=== PATIENT | male | born 1975 ===

== ENCOUNTER 2017-01-20 07:07 | Emergency (ER) | payer OTHER ==
[2017-01-20 07:15] VITALS: TEMP 98.2
[2017-01-20 07:19] VITALS: BMI 28.1
--- NOTE | 2017-01-20 07:24 | ED PDOC ---
Arrival/HPI - General Chief Complaint: Chest Pain Time Seen by Provider: 01/20/17 07:08 Historian: Patient, Family - History of Present Illness Narrative History of Present Illness (Text): 01/20/17 07:32 41 year old male who denies past medical history presents to the emergency department with pleuritic chest pain yesterday which has resolved. Currently patient is complaining of neck pain that radiates down the left arm, reproducible with movement and palpation. History translated by daughter. Time/Duration: 24 hours Symptom Onset: Gradual Symptom Course: Unchanged Modifying Factors (Text): Worse with movement and palpation Associated Symptoms (Text): None Past Medical History - Provider Review Nursing Documentation Reviewed: Yes - Musculoskeletal/Rheumatological Hx Back Pain: Yes - Psychiatric Hx Substance Use: No - Surgical History Other/Comment: Hernia Sx as a child. Family/Social History - Physician Review Nursing Documentation Reviewed: Yes Family/Social History: Unknown Family HX Smoking Status: Never Smoked Hx Alcohol Use: No Hx Substance Use: No Allergies/Home Meds Allergies/Adverse Reactions: Allergies No Known Allergies Allergy (Verified 01/20/17 07:19) Home Medications: Home Meds Medication Instructions Recorded Confirmed No Known Home Med 01/20/17 01/20/17 Review of Systems - Physician Review All systems were reviewed & negative as marked: Yes Physical Exam - Physical Exam Narrative Physical Exam (Text): - Review of Systems Constitutional: Normal. absent: Fatigue, Weight Change, Fevers Eyes: Normal ENT: Normal Respiratory: Normal absent: SOB, Cough, Sputum Cardiovascular: Chest pain (resolved) absent: Palpitations, Syncope Gastrointestinal: Normal absent: Abdominal pain, Diarrhea, Nausea, Vomiting Genitourinary: Normal. absent: Dysuria, Frequency, Hematuria Musculoskeletal: Neck Pain absent: Arthralgias, Back Pain Skin: Normal Neurological: Normal absent: Focal Weakness Endocrine: Normal Hemo/Lymphatic: Normal Psychiatric: Normal - Physical exam Patient appears age appropriate, speaking full sentences without difficulty - Systems Exam Head: Present: Atraumatic, Normocephalic Pupils: Present: PERRL Extraocular Muscles: Present: EOMI Conjunctiva: Present: Normal Mouth: Present: Moist Mucous Membranes Neck: Present: Normal Range of Motion. Pain reproducible with movement and palpation, paraspinal tenderness. No: MIDLINE TENDERNESS Respiratory/Chest: Present: Clear to Auscultation, Good Air Exchange. No: Respiratory Distress, Accessory Muscle Use, Tachypneic Cardiovascular: Present: Regular Rate and Rhythm, Normal S1, S2, Peripheral Pulses Present. No: Murmurs Abdomen: Present: Normal Bowel Sounds, No: Tenderness, Peritoneal Signs, Rebound, Guarding, Distention Back: Present: Normal Inspection. No: Midline Tenderness, Paraspinal Tenderness Upper Extremity: Present: Normal Inspection. No: Cyanosis, Edema Lower Extremity: Present: Normal Inspection. No: Edema Neurological: Present: GCS=15, Speech Normal, cranial nerves II through XII fully intact with no cerebellar abnormality, neuro-sensory fully intact. No focal neurological deficits. Skin: Present: Warm, Dry, Normal Color. No: Rashes Lymphatic: Present: OX3, NI, NC Psychiatric: Present: Alert, Oriented x 3, Normal Insight, Normal Concentration Vital Signs Reviewed: Yes Vital Signs Temp Pulse Resp BP Pulse Ox 01/20/17 07:14 98.2 F 86 18 149/80 100 Temperature: Afebrile Blood Pressure: Normal Pulse: Regular Respiratory Rate: Normal Appearance: Positive for: Well-Appearing, Non-Toxic, Comfortable Pain Distress: Mild Mental Status: Positive for: Alert and Oriented X 3 Medical Decision Making ED Course and Treatment: Impression: 41 year old male, denies pmhx, presents with pleuritic chest pain yesterday which resolved and now neck pain radiating down the left arm. On physical exam, patient Differential Diagnosis include but are not limited to: Plan: -- EKG, Chest X-ray -- Labs -- Reassess and disposition Progress Notes: EKG shows NSR at [address]-segment elevations, normal intervals. with no prior for comparison. Interpreted by me. 01/20/17 09:00 Chest xray interpreted by ED physician shows no pneumothorax, no cardiomegaly, no infiltrates pt with no cardiac risk factors, reproducible chest pain, currently denies cp and in no distress PERC negative for PE Had a long and extensive d/w patient about f/u with a candy feeder for further workup and testing as well as a primary physician. Explained to patient that although his ER w/u did not show any acute abnormalities, patient still needs further testing which may include an echo, stress test, cardiac cath, or others. Pt states he understands to return to the ER right away for new or worsening symptoms or for inability to f/u with PMD or specialist as instructed. Patient states that he fully agrees with and understands discharge instructions. States that he agrees with the plan and disposition. Verbalized and repeated discharge instructions and plan. I have given the patient opportunity to ask any additional questions. Patient encounter translated by his daughter. Patient has been offered an official senior tax analyst, however he refused. - Lab Interpretations Lab Results: 01/20/17 07:45 01/20/17 07:45 Lab Results 01/20/17 07:45: WBC 8.9, RBC 5.03, Hgb 16.1, Hct 44.6, MCV 88.7, MCH 32.0, MCHC 36.1, RDW 13.3, Plt Count 393, MPV 9.4, Gran % 40.8 L, Lymph % (Auto) 45.2 H, Stark % (Auto) 8.5 H, Eos % (Auto) 5.1 H, Baso % (Auto) 0.4, Gran # 3.63, Lymph # 4.0 H, Stark # 0.8 H, Eos # 0.5, Baso # 0.04, PT 10.5, INR 0.97, APTT 25.6, Sodium 140, Potassium 4.3, Chloride 101, Carbon Dioxide 29, Anion Gap 14, BUN 12 , Creatinine 1.0, Est GFR ( Amer) > 60, Est GFR (Non-Af Amer) > 60, Random Glucose 96, Calcium 9.8, Total Bilirubin 0.8, AST 32, ALT 38, Alkaline Phosphatase 50, Lactate Dehydrogenase 483, Total Creatine Kinase 185, Troponin I < 0.01, NT-Pro-B Natriuret Pep 12.3, Total Protein 8.1, Albumin 4.4, Globulin 3.7, Albumin/Globulin Ratio 1.2 - RAD Interpretation Radiology Orders: 01/20/17 07:20 CHEST PORTABLE [RAD] Stat - EKG Interpretation Interpreted by ED Physician: Yes Type: 12 lead EKG - Scribe Statement The provider has reviewed the documentation as recorded by the Ifrah Rasmussen Provider Scribe Attestation: All medical record entries made by the Ildaibshellie were at my direction and personally dictated by me. I have reviewed the chart and agree that the record accurately reflects my personal performance of the history, physical exam, medical decision making, and the department course for this patient. I have also personally directed, reviewed, and agree with the discharge instructions and disposition. Disposition/Present on Arrival - Present on Arrival Any Indicators Present on Arrival: No History of DVT/PE: No History of Uncontrolled Diabetes: No Urinary Catheter: No History of Decub. Ulcer: No History Surgical Site Infection Following: None - Disposition Have Diagnosis and Disposition been Completed?: Yes Diagnosis: Chest pain Disposition: HOME/ ROUTINE Disposition Time: 09:04 Patient Plan: Discharge Condition: GOOD Discharge Instructions (ExitCare): Chest Pain (ED) Additional Instructions: PLEASE RETURN TO THE EMERGENCY DEPARTMENT FOR NEW OR WORSENING SYMPTOMS. RETURN RIGHT AWAY IF YOU CANNOT FOLLOW UP WITH YOUR PRIMARY CARE DOCTOR, CLINIC, OR SPECIALIST IN 1-2 DAYS. Referrals: PCP,NO [Primary Care Provider] - Follow up with primary Twila Eason MD [Staff Provider] - Follow up with primary Livan Rodriguez MD [Staff Provider] - Follow up with primary [facility] [place] [Outside] - Follow up with primary Forms: SCHOOL NOTE, WORK NOTE
[2017-01-20 07:48] LABS: ADD MANUAL DIFF? NO
[2017-01-20 07:52] LABS: BASO # 0.04 K/mm3 (0.0-2.0); BASO % 0.4 % (0.0-3.0); EOS # 0.5 (0.0-0.7); EOS % 5.1 % (1.5-5.0); GRAN # 3.63 (1.4-6.5); GRAN % 40.8 % (50.0-68.0); HEMATOCRIT 44.6 % (42.0-52.0); LYMPH % 45.2 % (22.0-35.0); MEAN CELL VOLUME 88.7 fL (80.0-105.0); MEAN CORPUSCULAR HGB CONC 36.1 g/dl (31.0-37.0); MEAN PLATELET VOLUME 9.4 fl (7.0-11.0); MONO # 0.8 (0.1-0.6); MONO % 8.5 % (1.0-6.0); PLATELET COUNT 393 10^3/uL (120.0-450.0); RED CELL DISTRIBUTION WIDTH 13.3 % (11.5-14.5); WHITE BLOOD COUNT 8.9 10^3/ul (4.5-11.0)
[2017-01-20 08:04] LABS: ALB/GLOB RATIO 1.2 (1.1-1.8); ALKALINE PHOSPHATASE 50 U/L (38-133); ALT/SGPT 38 U/L (7-56); AST/SGOT 32 U/L (15-59); BILIRUBIN,TOTAL 0.8 mg/dL (0.2-1.3); BLOOD UREA NITROGEN 12 mg/dL (7-21); CALCIUM 9.8 mg/dL (8.4-10.5); CARBON DIOXIDE 29 mmol/L (21-33); CHLORIDE 101 mmol/L (98-107); GFR AFRICAN-AMERICAN > 60; GLUCOSE,RANDOM 96 mg/dL (70-110); POTASSIUM 4.3 mmol/L (3.6-5.0); SODIUM 140 mmol/L (132-148); TOTAL PROTEIN 8.1 g/dL (5.8-8.3)
[2017-01-20 08:18] LABS: INR 0.97 (0.93-1.08); PARTIAL THROMBOPLASTIN TIME 25.6 Seconds (23.7-30.8)
[2017-01-20 08:19] LABS: TROPONIN I < 0.01 ng/mL
--- NOTE | 2017-01-20 09:52 | RAD ---
HISTORY: cough COMPARISON: No prior. FINDINGS: LUNGS: No active pulmonary disease. PLEURA: No significant pleural effusion identified, no pneumothorax apparent. CARDIOVASCULAR: Normal. OSSEOUS STRUCTURES: No significant abnormalities. VISUALIZED UPPER ABDOMEN: Normal. OTHER FINDINGS: None. IMPRESSION: No active disease.
[2017-01-20 10:17] VITALS: BP 130/81; PULSE 75; RESP 17; O2SAT 98
--- NOTE | 2017-01-20 18:29 | CARD ---
APPROVED REPORT EKG Measurement Heart [id number] <Conclusion> Normal sinus rhythm Normal ECG
== END 2017-01-20 10:21 | disposition home or self-care (01) ==
LOC: ED 07:07
DX: R07.9 Chest pain, unspecified (principal)